=== PATIENT | male | born 1965 | race Caucasian/White ===

== ENCOUNTER 2019-11-15 06:15 | Day surgery (SDC) | payer OTHER ==
[~2019-11-15] VITALS: Ht 185.4 cm; Wt 70.0 kg
[~2019-11-15 06:15] MED LIST: SODIUM CHLORIDE 0.9% 1,000 ML IV ONE; SODIUM CHLORIDE 0.9% 1,000 ML ONE
[2019-11-15] MEDS ORDERED: FLUT16H NASAL (07:34)
[2019-11-15] MEDS ORDERED: BECL10.6 IH (07:34)
[2019-11-15] MEDS ORDERED: ALBU8.5H8 IH (07:34)
[2019-11-15] MEDS ORDERED: PRED10 PO (07:34)
[2019-11-15] MEDS ORDERED: MIDAZOLAM HCL 2 MG/2 ML VIAL ONE (07:48)
[2019-11-15] MEDS ORDERED: FentaNYL CITRATE-PF 100 MCG/2 ML VIAL ONE (07:48)
[2019-11-15] MEDS ORDERED: MethylPREDNISolone SOD SUCC 125 MG/2 ML VIAL ONE (08:20)
[2019-11-15] MEDS ORDERED: MethylPREDNISolone SOD SUCC 125 MG/2 ML VIAL IVP ONE (09:00)
[2019-11-15] MEDS ORDERED: LIDOCAINE 4% 50 ML SOLUTION ONE (17:24)
[2019-11-15] MEDS ORDERED: ALBUTEROL SULFATE 2.5 MG/0.5 ML NEB SOLUTION NEB ONE (17:24)
[2019-11-15] MEDS ORDERED: BENZOCAINE 20% 50 MCG/SPRAY 57 GM ONE (17:24)
[2019-11-15] MEDS ORDERED: LIDOCAINE 2% 30 ML JELLY ONE (17:24)
[2019-11-15] MEDS ORDERED: OXYGEN THERAPY IH SCH (20:00)
== END 2019-11-15 10:25 | disposition home or self-care (01) ==
LOC: SURGERY 06:15
PROVIDERS: ATTEND Internal Medicine Critical Care Medicine
DX: R05 Cough (principal); R91.8 Other nonspecific abnormal finding of lung field; J34.89 Other specified disorders of nose and nasal sinuses; J98.8 Other specified respiratory disorders; B37.0 Candidal stomatitis; J38.4 Edema of larynx; J98.4 Other disorders of lung; Z87.891 Personal history of nicotine dependence; Z98.890 Other specified postprocedural states
CPT/HCPCS: 31623; 31624; 71045; 87015; 87070; 87101; 87205; 87206; 87220; 88108; 88312; J2250; J2930; J3010; J7030